=== PATIENT | male | born 1995 | race Caucasian/White ===

== ENCOUNTER 2020-04-24 16:19 | Emergency (ER) | payer OTHER ==
[2020-04-24 16:50] LABS: #Eosinphils 0.3 thou/uL (0.0-0.7); #Lymphocytes 0.9 thou/uL (1.20-3.40); #Monocytes 0.6 thou/uL (0.11-0.59); %Basophils 0.5 % (0.0-1.0); %Eosinophils 4.5 % (0.0-10.0); %Lymphocytes 15.8 % (21.0-51.0); %Neutrophils 69.3 % (42.0-75.0); Hemoglobin 15.8 g/dL (14.0-18.0); Mean Corpuscular HGB CONC 35.3 g/dL (32.0-36.0); Mean Corpuscular Hemoglobin 31.1 pg (27.0-31.0); Mean Corpuscular Volume 87.9 fL (78.0-98.0); Mean Platelet Volume 7.7 fL (7.4-10.4); Platelet Count 150 thou/uL (130-400); RBC Distribution Width 10.9 % (11.5-14.5); Red Blood Cell (RBC) Count 5.09 mill/uL (4.70-6.10); White Blood Cell (WBC) Count 5.8 thou/uL (4.8-10.8)
[2020-04-24 17:11] LABS: ALT (SGPT) 21 U/L (8-55); AST (SGOT) 25 U/L (5-34); Albumin 4.6 g/dL (3.5-5.0); Alkaline Phosphatase 76 U/L (40-110); Anion Gap 14 mmol/L (10-20); BUN (Urea Nitrogen) 14 mg/dL (8.9-20.6); Bilirubin, Total 0.7 mg/dL (0.2-1.2); Calc. Creatinine Clearance 0 mL/min (70-130); Calcium 9.4 mg/dL (7.8-10.44); Carbon Dioxide 27 mmol/L (22-29); Chloride 104 mmol/L (98-107); Estimated GFR-MDRD 70; Globulin 2.8 g/dL (2.4-3.5); Glucose 98 mg/dL (70-105); Potassium 3.8 mmol/L (3.5-5.1); Protein, Total 7.4 g/dL (6.0-8.3); Sodium 141 mmol/L (136-145)
--- NOTE | 2020-04-24 19:54 | RAD ---
XR Chest 1 View Portable History: Near syncope Comparison: None. Findings: Lungs are clear. No pneumothorax or effusion. Cardiac silhouette and mediastinal contours a re within normal limits. No acute osseous abnormality. Impression: No acute intrathoracic abnormality.
[2020-04-24] MEDS ORDERED: Ketorolac Tromethamine 30 MG/ML VIAL ONE ×2 (20:28→20:29)
[2020-04-24] MEDS ORDERED: Calcium Carbonate 500 MG ChewTAB ONE (20:28)
[2020-04-24] MEDS ORDERED: Acetaminophen 500 MG TAB ONE (20:28)
[2020-04-24] MEDS ORDERED: diphenhydrAMINE 25 MG CAP ONE (20:28)
--- NOTE | 2020-04-24 20:54 | CT ---
CT Brain WO Con History: Near syncope Comparison: None. Findings: No acute hemorrhage or infarct. No midline shift or mass effect. Ventricular size and extra -axial CSF spaces are normal. Calvarium is intact. Paranasal sinuses and mastoids are clear. Impression: No acute intracranial abnormality.
== END 2020-04-24 21:46 | disposition home or self-care (01) ==
LOC: ERS 16:19
DX: G43.909 Migraine, unspecified, not intractable, without status migrainosus (principal); R55 Syncope and collapse; F31.9 Bipolar disorder, unspecified
CPT/HCPCS: 36415; 70450; 71045; 80053; 85025; 93005; 96372; J1885; Q0163

== ENCOUNTER 2021-12-27 17:09 | Observation (INO) | payer OTHER ==
[2021-12-27] MEDS ORDERED: Acetaminophen 500 MG TAB ONE (18:19)
[2021-12-27 18:22] LABS: #Eosinphils 0.7 thou/uL (0.0-0.7); #Lymphocytes 2.1 thou/uL (1.20-3.40); #Monocytes 0.5 thou/uL (0.11-0.59); #Neutrophils 4.2 thou/uL (1.40-6.50); %Basophils 0.5 % (0.0-1.0); %Eosinophils 9.4 % (0.0-10.0); %Lymphocytes 28.1 % (21.0-51.0); %Monocytes 6.5 % (0.0-10.0); %Neutrophils 55.5 % (42.0-75.0); Hemoglobin 16.3 g/dL (14.0-18.0); Mean Corpuscular HGB CONC 34.2 g/dL (32.0-36.0); Mean Corpuscular Hemoglobin 30.9 pg (27.0-31.0); Mean Corpuscular Volume 90.3 fL (78.0-98.0); Mean Platelet Volume 7.1 fL (7.4-10.4); Platelet Count 208 thou/uL (130-400); RBC Distribution Width 11.1 % (11.5-14.5); Red Blood Cell (RBC) Count 5.28 mill/uL (4.70-6.10); White Blood Cell (WBC) Count 7.6 thou/uL (4.8-10.8)
[2021-12-27 18:46] LABS: ALT (SGPT) 68 U/L (8-55); AST (SGOT) 43 U/L (5-34); Albumin 4.3 g/dL (3.5-5.0); Alkaline Phosphatase 64 U/L (40-110); Anion Gap 12 mmol/L (10-20); BUN (Urea Nitrogen) 12 mg/dL (8.9-20.6); Bilirubin, Total 0.4 mg/dL (0.2-1.2); Calc. Creatinine Clearance 0 mL/min (70-130); Calcium 9.6 mg/dL (7.8-10.44); Carbon Dioxide 29 mmol/L (22-29); Chloride 103 mmol/L (98-107); Glucose 86 mg/dL (70-105); Lipase 51 U/L (8-78); Potassium 3.6 mmol/L (3.5-5.1); Protein, Total 7.3 g/dL (6.0-8.3); Sodium 140 mmol/L (136-145)
[2021-12-27] MEDS ORDERED: Ketorolac Tromethamine 30 MG/ML VIAL ONE (19:34)
[2021-12-27 21:37] LABS: Troponin I Less than 0.010 ng/mL (< 0.028)
[2021-12-27 22:13] VITALS: BMI 25.0
[2021-12-27] MEDS ORDERED: Acetaminophen 325 MG TAB PO PRN (23:58)
[2021-12-27] MEDS ORDERED: Ondansetron ODT 4 MG TAB PO PRN (23:58)
[2021-12-27] MEDS ORDERED: Ondansetron PF 4 MG/2 ML Vial IVP PRN (23:58)
[2021-12-27] MEDS ORDERED: Acetaminophen 650 MG Suppository PR PRN (23:58)
[2021-12-27] MEDS ORDERED: Nitroglycerin 0.4 MG TAB (25 Tab Bottle) SL PRN (23:58)
[2021-12-28 01:19] LABS: Troponin I Less than 0.010 ng/mL (< 0.028)
[2021-12-28 05:19] LABS: #Eosinphils 0.9 thou/uL (0.0-0.7); #Lymphocytes 2.4 thou/uL (1.20-3.40); #Monocytes 0.6 thou/uL (0.11-0.59); #Neutrophils 4.1 thou/uL (1.40-6.50); %Basophils 0.5 % (0.0-1.0); %Eosinophils 11.3 % (0.0-10.0); %Lymphocytes 29.4 % (21.0-51.0); %Monocytes 7.5 % (0.0-10.0); %Neutrophils 51.4 % (42.0-75.0); Hemoglobin 15.3 g/dL (14.0-18.0); Mean Corpuscular HGB CONC 34.2 g/dL (32.0-36.0); Mean Corpuscular Volume 90.4 fL (78.0-98.0); Mean Platelet Volume 7.1 fL (7.4-10.4); Platelet Count 202 thou/uL (130-400); RBC Distribution Width 11.1 % (11.5-14.5); Red Blood Cell (RBC) Count 4.93 mill/uL (4.70-6.10)
[2021-12-28 05:41] LABS: Anion Gap 10 mmol/L (10-20); BUN (Urea Nitrogen) 12 mg/dL (8.9-20.6); Calc. Creatinine Clearance 143 mL/min (70-130); Carbon Dioxide 27 mmol/L (22-29); Chloride 106 mmol/L (98-107); Glucose 103 mg/dL (70-105); Potassium 3.6 mmol/L (3.5-5.1); Sodium 139 mmol/L (136-145)
[2021-12-28] MEDS ORDERED: Pantoprazole 40 MG VIAL IVP SCH (09:00)
[2021-12-28] MEDS ORDERED: Aspirin Chewable 81 MG TAB PO SCH (09:00)
[2021-12-28 12:07] VITALS: BP 104/68; TEMP 97.6
== END 2021-12-28 14:35 | disposition home or self-care (01) ==
LOC: ERS 17:09 → 2SW 20:11
PROVIDERS: ADMIT Student in an Organized Health Care Education/Training Program; ATTEND Internal Medicine
DX: R07.89 Other chest pain (principal); R55 Syncope and collapse; I08.1 Rheumatic disorders of both mitral and tricuspid valves; Z82.49 Family history of ischemic heart disease and other diseases of the circulatory system; Z88.7 Allergy status to serum and vaccine
CPT/HCPCS: 36415; 71045; 80048; 80053; 83690; 84443; 84484; 85025; 85379; 85652; 86140; 93005; 93017; 93306; 94760; 96374; C9113; G0378; J1885

== ENCOUNTER 2022-03-13 | Emergency (ER) | payer OTHER ==
[2022-03-13] MEDS ORDERED: Bupivacaine 0.25% 10 ML VIAL ONE (00:19)
[2022-03-13] MEDS ORDERED: Lidocaine 2% PF 5 ML VIAL ONE (00:21)
== END 2022-03-13 01:21 | disposition home or self-care (01) ==
LOC: ERS
DX: S62.511A Displaced fracture of proximal phalanx of right thumb, initial encounter for closed fracture (principal); W23.0XXA Caught, crushed, jammed, or pinched between moving objects, initial encounter
CPT/HCPCS: 29130; J2001; S0020

== ENCOUNTER 2022-08-21 19:32 | Emergency (ER) | payer OTHER ==
[2022-08-21] MEDS ORDERED: Ketorolac Tromethamine 30 MG/ML VIAL ONE (20:22)
[2022-08-21] MEDS ORDERED: FENTANYL 50 MCG/ML VIAL 50 MCG/ML VIAL ONE (20:23)
[2022-08-21] MEDS ORDERED: Lorazepam 2 MG/ML VIAL ONE (20:24)
== END 2022-08-21 21:59 | disposition home or self-care (01) ==
LOC: ERS 19:32
DX: S89.91XA Unspecified injury of right lower leg, initial encounter (principal); W55.12XA Struck by horse, initial encounter
CPT/HCPCS: 96374; 96375; J1885; J2060; J3010

== ENCOUNTER 2023-09-10 20:14 | Emergency (ER) | payer OTHER ==
[2023-09-11] MEDS ORDERED: HYDROcodone/Acetaminophen 10/325 mg Tablet ONE (00:18)
[2023-09-11] MEDS ORDERED: Cyclobenzaprine 10 MG TAB ONE (00:18)
== END 2023-09-11 00:25 | disposition home or self-care (01) ==
LOC: ERS 20:14
DX: M25.511 Pain in right shoulder (principal); X50.0XXA Overexertion from strenuous movement or load, initial encounter; Y93.89 Activity, other specified

== ENCOUNTER 2024-10-28 20:42 | Emergency (ER) | payer OTHER ==
[~2024-10-28 20:42] MED LIST: Iopamidol-370 76% 500 ML MDV (1 ML CHARGE) ONE
[2024-10-28 21:43] LABS: #Basophils 0.03 10x3/uL (0.0-0.2); %Basophils 0.4 % (0.0-1.0); %Eosinophils 9.9 % (0.0-10.0); %Lymphocytes 24.8 % (21.0-51.0); %Monocytes 9.8 % (0.0-10.0); %Neutrophils 54.7 % (42.0-75.0); Hemoglobin 16.8 g/dL (14.0-18.0); Mean Corpuscular Hemoglobin 29.8 pg (27.0-31.0); Mean Corpuscular Volume 85.3 fL (78.0-98.0); Mean Platelet Volume 9.6 fL (7.4-10.4); Platelet Count 200 10x3/uL (130-400); RBC Distribution Width 11.9 % (11.5-14.5); Red Blood Cell (RBC) Count 5.63 mill/uL (4.70-6.10)
[2024-10-28 21:59] LABS: ALT (SGPT) 18 U/L (8-55); AST (SGOT) 19 U/L (5-34); Albumin 4.4 g/dL (3.5-5.0); Alkaline Phosphatase 70 U/L (40-110); Anion Gap 15 mmol/L (10-20); BUN (Urea Nitrogen) 17 mg/dL (8.9-20.6); Bilirubin, Total 0.5 mg/dL (0.2-1.2); Calc. Creatinine Clearance 0 mL/min (70-130); Carbon Dioxide 24 mmol/L (22-29); Chloride 106 mmol/L (98-107); Estimated GFR 110; Globulin 2.7 g/dL (2.4-3.5); Glucose 105 mg/dL (70-105); Potassium 4.4 mmol/L (3.5-5.1); Protein, Total 7.1 g/dL (6.0-8.3); Sodium 141 mmol/L (136-145)
[2024-10-28 22:05] LABS: Troponin I Less than 0.010 ng/mL (< 0.028)
[2024-10-28] MEDS ORDERED: Morphine 2 MG/ML VIAL ONE (22:56)
[2024-10-28] MEDS ORDERED: Ketorolac Tromethamine 30 MG (1 mL) VIAL ONE (22:56)
== END 2024-10-28 23:24 | disposition home or self-care (01) ==
LOC: ERS 20:42
DX: I51.4 Myocarditis, unspecified (principal); M79.604 Pain in right leg
CPT/HCPCS: 71045; 72193; 80053; 82550; 83880; 84484; 85025; 86141; 87428; 93005; 96374; 96375; J1885; J2272; Q9967

== ENCOUNTER 2024-11-22 16:20 | Outpatient (CLI) | payer OTHER ==
[~2024-11-22 16:20] MED LIST changes: +Iopamidol 370 76% 100 ML VIAL ONE; -Iopamidol-370 76% 500 ML MDV (1 ML CHARGE) ONE
== END 2024-11-22 16:21 | disposition home or self-care (01) ==
LOC: BICCT 16:20
PROVIDERS: ATTEND Internal Medicine Cardiovascular Disease
DX: R51.9 Headache, unspecified (principal); J34.89 Other specified disorders of nose and nasal sinuses
CPT/HCPCS: 70470

== ENCOUNTER 2024-12-20 12:37 | Emergency (ER) | payer OTHER | END 2024-12-20 16:15 | disposition home or self-care (01) | LOC: ERS 12:37 | DX: S70.12XA Contusion of left thigh, initial encounter (principal); I50.9 Heart failure, unspecified; X58.XXXA Exposure to other specified factors, initial encounter; Z79.899 Other long term (current) drug therapy | CPT/HCPCS: 93005; 99283 ==